=== PATIENT | male | born 1950 | race Caucasian/White ===

== ENCOUNTER 2018-12-12 11:34 | Day surgery (SDC) | payer OTHER, SELFPAY ==
--- NOTE | 2018-12-08 17:55 | PCM.HP.BLA ---
History and Physical Date of Admission: 12/08/18 HISTORY AND PHYSICAL ? Bert Li 1950 ? REFERRING PHYSICIAN: ??Lang Orlando ? CHIEF COMPLAINT: ??Consult (colonoscopy) ? HPI: The patient is a 68 year old male referred for endoscopy. ?Bert notes no history of colon complaints.??He denies any change in bowel habits, weight changes, blood in stools, black tarry stools or abdominal pain.??Denies a family history of colon cancer.?The patient??notes no history of upper GI complaints. ? Bert?has??undergone prior endoscopy, last in July 2008 with removal of benign hyperplastic polyp at that time. ? The patient is being seen by me today at the request of ?for my opinion and advice regarding screening colonoscopy.??Past medical history significant for tonsillar cancer treated with radiation, hypertension, hyperlipidemia, DVT. ?Patient denies any problems with sedation in the past. ? ? PAST?MEDICAL?HISTORY PAST MEDICAL HISTORY Diagnosis Date ? Benign neoplasm of colon ? ? Diverticulosis of colon (without mention of hemorrhage) ? ? DVT (deep venous thrombosis) (HCC) ? ? Eczema ? ? Dr Nile Castro ? Internal hemorrhoids without mention of complication ? ? Other and unspecified hyperlipidemia ? ? Periodontal disease ? ? Dr. Rivera ? Thoracic outlet syndrome ? ? Tobacco use ? ? Tonsil cancer (HCC) 2012 ? right, Seeing Dr. Reza every 6 months ? Unspecified essential hypertension ? ? ? PAST?SURGICAL?HISTORY PAST SURGICAL HISTORY Procedure Laterality Date ? COLONOSCOPY W/BX ? 08/01/08 ? [facility] ? 09/30/12 ? KNEE SCOPE,DIAGNOSTIC ? 1994 ? Arthroscopy, knee, right ? KNEE SCOPE,DIAGNOSTIC ? 10/29/2005 ? Arthroscopy, knee right ? PAST SURGICAL HISTORY OF ? ? ? bone chips removed left ankle ? PAST SURGICAL HISTORY OF ? 08/01/12 ? laryngoscopy /c bx of oropharynx (tonsil and tongue base) ? ? CURRENT?MEDICATIONS ? Current Outpatient Prescriptions: folic acid 1 mg tablet Take 1 tablet by mouth once daily. lisinopril-hydrochlorothiazide (PRINZIDE,ZESTORETIC) 10-12.5 mg per tablet Take 1 tablet by mouth every morning. traZODone (DESYREL) 50 mg tablet Take 1 tablet by mouth at bedtime as needed for Sedation (sedation). diclofenac sodium (VOLTAREN) 1 % topical gel Apply 2 g to affected area twice daily. Clobetasol Propionate 0.05 % lotn Apply 1 application to affected area twice daily. cyanocobalamin (VITAMIN B-12) 1,000 mcg tab Take 1 tablet by mouth once daily. Cholecalciferol, Vitamin D3, 1,000 unit cap Take 1 capsule by mouth once daily. sulindac (CLINORIL) 150 mg tablet Take 1 tablet by mouth twice daily. (Patient not taking: Reported on 09/22/2018 ) buPROPion SR (ZYBAN SR; WELLBUTRIN SR) 150 mg 12 hr tablet TAKE 1 TABLET TWICE DAILY (Patient not taking: Reported on 09/22/2018) multivitamins w-minerals/lut(CENTRUM SILVER TAB) Take one(1) tablet daily. (Patient not taking: No sig reported) ? No current facility-administered medications for this visit.? ? ALLERGIES:?Soft Shell Crabs [Other]; Aleve [Naproxen Sodium] ? PERSONAL HISTORY:? SOCIAL?HISTORY Social History ??Marital status: ?Spouse name: ?Years of education: ?Number of children: 0 ? 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 Social History Main Topics ??Smoking status: Current Every Day Smoker ?Packs/day: 1.00 ?Years: 40.00 ?Types: Cigarettes ??Smokeless tobacco: Never Used ?Alcohol use: Yes ?Comment: 3-4 mixed drinks or wine per day ??Drug use: No ?Sexual activity: Yes ?Partners with: Female ? ? FAMILY HISTORY:? FAMILY?HISTORY FAMILY HISTORY Problem Relation Age of Onset ? Diabetes Mother ? ? Hypertension Father ?bypass OR ? Coronary Artery Disease Father ? ? None Sister ? ? None Sister ? ? None Brother ? ? None Brother ? ? REVIEW OF SYMPTOMS: ??The review of systems data was entered by the nurse and reviewed by me ? Nursing Notes: Paula Pacheco RN ?09/22/2018 ?8:12 AM ?Signed REVIEW OF SYSTEMS: ?General:???The patient denies fatigue, denies weight loss, denies weight gain, denies feeling hot, and denies feelings of cold. ?Eyes: ?The patient denies glaucoma, denies eye injury/surgery, wears glasses or contacts. ?Ear/Nose/Throat: ?The patient notes allergies, denies hayfever, denies ear infections, and denies bloody noses. ?Cardiovascular: ?The patient denies chest pain, denies heart disease, notes high blood pressure,denies cardiac stent, denies prior heart attack, denies irregular heart beat, denies high cholesterol, ?denies poor circulation, denies heart failure, other cardiac issues, denies claudication, denies cold feet, denies peripheral arterial stent. ?Respiratory: ?The patient denies tuberculosis, denies pneumonia, denies frequent cough, denies pulmonary embolism, denies shortness of breath, and denies coughing up blood. ?Gastrointestinal: ?The patient denies difficulty swallowing, denies acid reflux, denies ulcers, denies vomiting, denies jaundice/hepatitis, denies gallbladder problems, denies black or tarry stools, denies hemorrhoids, denies bleeding from rectum, denies diverticulitis, denies constipation, denies diarrhea, denies loss of stool control, and denies hernias. ?Kidney/Bladder: ?The patient denies kidney stones, denies urine infections, and denies bloody urine. ?Skin: ?The patient denies a history of skin cancer, denies bleeding/changing moles, and notes a history of skin rash. ?Neurologic: ?The patient denies a history of epilepsy/convulsions, denies headaches, denies head/spinal injuries, and denies stroke/TIA. ?Psychiatric: ?The patient denies psychiatric medications, denies depression, and denies voices, denies substance abuse. ?Endocrine: ?The patient denies thyroid disorders, denies diabetes, and denies hormonal problems. ?Hematologic: ?The patient denies a history of bruising, denies bleeding, and denies anemia, denies blood clots. ?Infections: ?The patient notes a history of measles and mumps, denies rheumatic fever, and denies sexually transmitted diseases. ?Musculoskeletal: ?The patient denies back pain/injury, denies back problems, denies sciatica, denies knee/foot trouble, NOTES arthritis, or denies gout. ? ? When was patient's last Mammogram screening? N/A ? ?Last Colonoscopy: ?07/2008 ? Paula Pacheco RN? I have confirmed and edited as necessary, the PFSH and ROS obtained by others. ? ? PHYSICAL EXAMINATION: ? General: ?The patient is 68 year old male, well nourished, well hydrated in no acute distress. ?The patient is oriented to time, place, and person. ? VITALS:?Blood pressure 164/82, pulse 109, temperature 37 ?C (98.6 ?F), height 167.6 cm (5' 6), weight 68.3 kg (150 lb 9.6 oz), SpO2 98 %.?Body mass index is 24.31 kg/m?.? ? HEENT: ?Normal cephalic, ataumatic, pupils are equally round, sclera are anicteric, mucous membranes are moist, oropharynx is clear. ?Neck has no masses, asymmetry or lymphadenopathy. ? Respiratory: ?Clear to auscultation and percussion. ?Normal respiratory excursion and pattern. ? Cardiac: ?Examination is regular rate and rhythm. ? Abdominal exam: ?Soft, nontender, ?with no palpable masses. ?No hepatosplenomegaly. ?No palpable hernias. ? Rectal exam:?exam deferred ? Extremities: ?no clubbing, cyanosis or edema. ?No adenopathy. ? Other: ? LABORATORY VALUES: As Noted ? RADIOLOGIC STUDIES: ?As Noted ? ? Assessment ? IMPRESSION:?encounter for screening colonoscopy ? PLAN:??I have reviewed my findings with Dr. De Oliveira. ?Will plan for screening colonoscopy.??We discussed the risks and benefits of the planned endoscopy. ?I have informed the patient that complications can occur including failure to complete the endoscopy and perforation. ?The patient had the opportunity to ask questions concerning the planned endoscopy. ?My staff has also explained the procedure to the patient in understandable terms and has given the patient printed material concerning the procedure. ?The patient freely consents to surgery. ? We will plan for colonoscopy to be performed under Monitored Anesthetic Care-prior history of tonsillar cancer with radiation therapy ? I plan to use golytely bowel preparation for endoscopy ? Diagnoses:?(Z12.11) Encounter for screening for malignant neoplasm of colon ?(primary encounter diagnosis) ? My findings have been communicated to ?via shared medical record. ?This note will be forwarded to Dr. Lang Orlando MD. ?? Return to Clinic: The patient is instructed to follow-up with me?1 week post operatively. ? Margoth Hamilton PA-C
[2018-12-12] VITALS (7 sets, daily range): BP systolic 123–151; BP diastolic 73–97; PULSE 64–92; RESP 16–18; TEMP 36.5–37; O2SAT 98–99; BMI 24.5
--- NOTE | 2018-12-12 12:45 | COLBX_PTH ---
PATIENT: SHANIA ONEILL LOC: EN U#:[id number] AGE/SX: 68/M ROOM: RE12/12/[address]: Dr. Ottoniel De Oliveira MD : 1950 BED: DIS: 12/12/2018 SPEC #: [id number] RECD: 12/12/18 14:29 STATUS: VALERY SANDER #: [id number] DAWNA: 12/12/18 12:[address]: Ottoniel De Oliveira DEPT: SURGICAL PATHOLOGY RECD BY: Leonila Crowe ENTERED: 12/13/18 11:23 SP TYPE: COLON BX OTHR DR: Dr. Rolo Orlando MD Tissues: A - Ascending colon B - POLYP C - Sigmoid colon biopsy Procedures: Surgery Specimen Level IV HEADER OPERATION: Colonoscopy (MAC) PRE-OP DIAGNOSIS: Screening TISSUE SUBMITTED: A. Polyps of ascending colon, B. Polyps of hepatic flexure, C. Sigmoid polyp MICROSCOPIC DIAGNOSIS A. Polyps of ascending colon, biopsy: Tubular adenoma (one fragment). Tubulovillous adenoma (one fragment). B. Polyps of hepatic flexure, biopsy: Fragments of hyperplastic polyp. C. Sigmoid polyp, biopsy: Hyperplastic polyp. BRONWYN:nella 12/14/18 MICROSCOPIC DESCRIPTION Slides are reviewed. GROSS DESCRIPTION A - Received in fixative is one container labeled with the patient's name and designated polyps of ascending colon. The specimen consists of multiple irregular fragments of schmitz soft tissue that in aggregate measure 0.5 x 0.3 x 0.1 cm. The specimen is totally submitted in one cassette. B - Received in fixative is one container labeled with the patient's name and designated polyps of hepatic flexure. The specimen consists of two irregular fragments of schmitz-pink soft tissue that in aggregate measure 0.8 x 0.4 x 0.2 cm. The specimen is totally submitted in one cassette. C - Received in fixative is one container labeled with the patient's name and designated sigmoid polyp. The specimen consists of one irregular fragment of light schmitz soft tissue that measures 0.2 x 0.2 x 0.1 cm. The specimen is totally submitted in one cassette. / BRONWYN:nella 12/13/18 TC:1 CPT: 33923 x3
--- NOTE | 2018-12-12 13:02 | OP.ENDO_ITS ---
Patient Name: Bert Li Procedure Date: 12/12/2018 12:33 PM Date of : 1950 Age: 68 Procedure: Colonoscopy Indications: Screening for colorectal malignant neoplasm Providers: Ottoniel De Oliveira MD Medicines: Monitored Anesthesia Care Patient Profile: This is a 68 year old male. Refer to note in patient chart for documentation of history and physical. Last Colonoscopy: 10 years ago. Complications: No immediate complications. Procedure: Pre-Anesthesia Assessment: - Prior to the procedure, a History and Physical was performed, and patient medications and allergies were reviewed. The patient is competent. The risks and benefits of the procedure and the sedation options and risks were discussed with the patient. All questions were answered and informed consent was obtained. Patient identification and proposed procedure were verified by the physician, the nurse and the senior principal process engineer in the procedure room. Mental Status Examination: alert and oriented. Airway Examination: normal oropharyngeal airway and neck mobility. Respiratory Examination: clear to auscultation. CV Examination: normal. Prophylactic Antibiotics: The patient does not require prophylactic antibiotics. Prior Anticoagulants: The patient has taken no previous anticoagulant or antiplatelet agents. ASA Grade Assessment: III - A patient with severe systemic disease. After reviewing the risks and benefits, the patient was deemed in satisfactory condition to undergo the procedure. The anesthesia plan was to use monitored anesthesia care (MAC). Immediately prior to administration of medications, the patient was re-assessed for adequacy to receive sedatives. The heart rate, respiratory rate, oxygen saturations, blood pressure, adequacy of pulmonary ventilation, and response to care were monitored throughout the procedure. The physical status of the patient was re-assessed after the procedure. After I obtained informed consent, the scope was passed under direct vision. Throughout the procedure, the patient's blood pressure, pulse, and oxygen saturations were monitored continuously. The pediatric colonoscope was introduced through the anus and advanced to the cecum, identified by appendiceal orifice and ileocecal valve. The colonoscopy was performed without difficulty. The patient tolerated the procedure well. The quality of the bowel preparation was good. Scope In: 12:41:03 PM Scope Withdrawal Time 0 hours 10 minutes 29 seconds Scope Out: 12:55:59 PM Total Procedure Duration Time 0 hours 14 minutes 56 seconds Findings: The perianal and digital rectal examinations were normal. Four sessile polyps were found in the sigmoid colon, hepatic flexure and cecum. The polyps were small in size. These polyps were removed with a hot snare. Resection and retrieval were complete. Many medium-mouthed diverticula were found in the entire colon. The exam was otherwise without abnormality. The retroflexed view of the distal rectum and anal verge was normal and showed no anal or rectal abnormalities. Impression: - Four small polyps in the sigmoid colon, at the hepatic flexure and in the cecum, removed with a hot snare. Resected and retrieved. - Diverticulosis in the entire examined colon. - The examination was otherwise normal. - The distal rectum and anal verge are normal on retroflexion view. Recommendation: - Discharge patient to home. - Resume previous diet. - Continue present medications. - Await pathology results. - Telephone my office for pathology results in 1 week. - Repeat colonoscopy is recommended for surveillance of multiple polyps. The colonoscopy date will be determined after pathology results from today's exam become available for review. Procedure Code(s): --- Professional --- 37347, Colonoscopy, flexible; with removal of tumor(s), polyp(s), or other lesion(s) by snare technique CPT copyright 2017 [employer]. All rights reserved. The codes documented in this report are preliminary and upon safety and security manager review may be revised to meet current compliance requirements. Ottoniel De Oliveira MD 12/12/2018 1:02:29 PM This report has been signed electronically. Number of Addenda: 0 Note Initiated On: 12/12/2018 12:33 PM
== END 2018-12-12 13:51 | disposition home or self-care (01) ==
LOC: EN 11:37 → AC 11:50
PROVIDERS: Family Provider Family Medicine; PCP Family Medicine; Referring Provider Surgery; Visit Provider Surgery
PROC: 0DJD8ZZ Inspection of Lower Intestinal Tract, Via Natural or Artificial Opening Endoscopic (ICD-10-PCS; CPT 45378; principal; 2018-12-12 12:40)
DX: Z12.11 Encounter for screening for malignant neoplasm of colon (principal); D12.2 Benign neoplasm of ascending colon; K63.5 Polyp of colon; K57.30 Diverticulosis of large intestine without perforation or abscess without bleeding; I10 Essential (primary) hypertension; E78.5 Hyperlipidemia, unspecified; F17.200 Nicotine dependence, unspecified, uncomplicated; Z79.899 Other long term (current) drug therapy; Z85.819 Personal history of malignant neoplasm of unspecified site of lip, oral cavity, and pharynx; Z86.718 Personal history of other venous thrombosis and embolism
CPT/HCPCS: 45380; 88305; J7120

== ENCOUNTER → 2021-01-21 | Outpatient (CLI) | payer OTHER, SELFPAY ==
[2018-12-12 11:53] VITALS: BMI 24.5
== END | disposition home or self-care (01) ==
LOC: LABSPEC 01-22 10:34
PROVIDERS: PCP Family Medicine; Visit Provider Dermatology
DX: B37.2 Candidiasis of skin and nail (principal)
CPT/HCPCS: 87070; 87077; 87186; 87205

== ENCOUNTER → 2023-02-22 | Outpatient (CLI) | payer MEDICARE, SELFPAY ==
--- NOTE | 2023-02-22 13:17 | RAD_ITS ---
INDICATION: Postlaminectomy syndrome, not elsewhere classified EXAMINATION/TECHNIQUE: X-RAY - XR Spine Lumbar 2 or 3 Views COMPARISON: No previous FINDINGS: VERTEBRAE: Vertebral body height is maintained. There is a subtle grade 1 anterolisthesis of L5 on S1. Multi focal degenerative changes noted without fracture or acute destructive bony process. Visualized sacrum and sacroiliac joints have normal appearance. DISCS: Disc space narrowing endplate sclerosis and marginal osteophyte formation with central vacuum phenomena at L4-5 and L5-S1. Minimal osteophytes at remaining levels. INCLUDED ABDOMEN: Included bowel gas pattern is non-obstructive. Abdominal aortic calcifications without isha aneurysmal dilatation. RAD/Lumbar Spine 2 or 3 Views IMPRESSION: 1. Moderate to extensive lumbar spondylosis most marked at L4-5 and L5-S1. Grade 1 anterolisthesis of L5 on S1 is noted. No isha pars defects. 2. Mild lumbar spondylosis at remaining levels. 3. No acute fractures or acutely acquired malalignment noted. Electronically Signed: Ottoniel Issa MD at 1:23 EDT ,
--- NOTE | 2023-02-22 13:25 | RAD_ITS ---
INDICATION: Postlaminectomy syndrome, not elsewhere classified EXAMINATION/TECHNIQUE: X-RAY - XR Spine Cervical 2 or 3 Views COMPARISON: None. FINDINGS: VERTEBRAE: Vertebral body height is maintained. Extensive postoperative changes with pedicle screw posterior fixation extending from C3 to C6. No fractures or hardware failure. Normal appearance the odontoid process and prevertebral soft tissue planes. Normal appearance of the visualized cervical thoracic junction. DISCS: Moderate disc space narrowing most notable at C4-5 and C5-6. NECK SOFT TISSUES: No prevertebral soft tissue widening. LUNG APICES: Clear. RAD/Cerv Spine 2 or 3 Views IMPRESSION: 1. Status post pedicle screw, posterior fixation and laminectomy defects from C3 to C6. 2. No fractures, malalignment or hardware failure. 3. Cervical spondylosis.. Electronically Signed: Ottoniel Issa MD at 1:26 EDT ,
[2023-02-22 14:22] LABS: Amphetamine Urine VISTA NEGATIVE (<1000 ng/mL); Barbiturate Urine VISTA NEGATIVE (< 200 ng/mL); Benzodiazepine Urine VISTA NEGATIVE (< 200 ng/mL); Cocaine Urine VISTA NEGATIVE (< 300 ng/mL); Ecstacy Urine VISTA NEGATIVE (< 500 ng/mL); Methadone Urine VISTA NEGATIVE (< 300 ng/mL); PCP Urine VISTA NEGATIVE (< 25 ng/mL); THC Urine VISTA NEGATIVE (< 50 ng/mL); Vista UDS pH Range 6
== END | disposition home or self-care (01) ==
PROVIDERS: PCP Internal Medicine; Referring Provider Anesthesiology Pain Medicine; Visit Provider Anesthesiology Pain Medicine
DX: M96.1 Postlaminectomy syndrome, not elsewhere classified (principal); F11.20 Opioid dependence, uncomplicated; M51.36 Other intervertebral disc degeneration, lumbar region
CPT/HCPCS: 72040; 72100; 80307

== ENCOUNTER → 2023-12-07 | Outpatient (CLI) | payer MEDICARE, SELFPAY ==
--- NOTE | 2023-12-07 10:00 | RAD_ITS ---
STUDY: X-RAY - ESOPHAGUS (BARIUM SWALLOW) WITH FLUOROSCOPY REASON FOR EXAM: Male, 73 years old. DYSPHAGIA TECHNIQUE: 17 view(s) of the esophagus were obtained following swallowing of barium. FLUOROSCOPY TIME (if supplied): (30 seconds) minutes/seconds. COMPARISON: None. FINDINGS: There is no demonstrated esophageal foreign body. There is no demonstrated stricture or mucosal abnormality. Normal gastroesophageal junction, without a demonstrated hiatal hernia. The patient ingested a 12 mm tablet that barium without any difficulty. There is atherosclerotic calcification of the aortic arch with tortuosity of the descending aorta. Normal visualized pulmonary parenchyma. Normal visualized osseous structures of the thorax. RAD/Esophagus Single Contrast IMPRESSION: Normal plain film x-ray examination (barium swallow) of the esophagus. Electronically Signed: Arias Guerrero MD at 14:09 EDT ,
== END | disposition home or self-care (01) ==
LOC: RAD 09:44
PROVIDERS: PCP Internal Medicine; Referring Provider Otolaryngology; Visit Provider Otolaryngology
DX: R13.13 Dysphagia, pharyngeal phase (principal)
CPT/HCPCS: 74220

== ENCOUNTER → 2024-09-08 | Outpatient (CLI) | payer MEDICARE, SELFPAY | END | disposition home or self-care (01) | LOC: LABSPEC 12:07 | PROVIDERS: PCP Internal Medicine; Referring Provider Otolaryngology; Visit Provider Otolaryngology | DX: R05.9 Cough, unspecified (principal) | CPT/HCPCS: 87070; 87077; 87186; 87205 ==